=== PATIENT | male | born 2000 | race Caucasian/White ===

== ENCOUNTER 2019-03-24 09:18 | Emergency (ER) | payer OTHER ==
[~2019-03-24] VITALS: Ht 167.6 cm; Wt 61.2 kg
[~2019-03-24 09:18] MED LIST: ATARAX25 MG PO; CLARITIN REDITAB5 MG PO; PREDNICOT20 MG PO; PREDNISONE20 MG PO; SINGULAIR CHEWAB5 MG PO; VYVANSE30 MG PO; ZOFRAN ODT4 MG SL
[2019-03-24 09:26] VITALS: BP 118/58
[2019-03-24] MEDS ORDERED: IBUPROFEN600 MG PO (09:45)
[2019-03-24] MEDS ORDERED: AMOXICILLIN500 M2 PO (09:45)
== END 2019-03-24 09:51 | disposition home or self-care (01) ==
LOC: ED 09:18
DX: K02.9 Dental caries, unspecified (principal); Z79.899 Other long term (current) drug therapy

== ENCOUNTER 2019-09-21 22:18 | Emergency (ER) | payer OTHER ==
[~2019-09-21] VITALS: Wt 59.0 kg
[~2019-09-21 22:18] MED LIST changes: +AMOXICILLIN500 M2 PO; +IBUPROFEN600 MG PO
[2019-09-21 22:23] VITALS: BP 102/85
[2019-09-21] MEDS ORDERED: CLINDAMYCIN HC300 MG PO (22:56)
== END 2019-09-21 23:16 | disposition home or self-care (01) ==
LOC: ED 22:18
DX: L05.01 Pilonidal cyst with abscess (principal)

== ENCOUNTER 2020-02-18 14:11 | Emergency (ER) | payer OTHER ==
[~2020-02-18] VITALS: Ht 180.3 cm; Wt 59.0 kg
[~2020-02-18 14:11] MED LIST changes: +CLINDAMYCIN HC300 MG PO
[2020-02-18 14:37] VITALS: BP 110/69
== END 2020-02-18 16:22 | disposition home or self-care (01) ==
LOC: ED 14:11
DX: S80.01XA Contusion of right knee, initial encounter (principal); W18.39XA Other fall on same level, initial encounter; Y93.89 Activity, other specified; Y92.89 Other specified places as the place of occurrence of the external cause; Y99.8 Other external cause status

== ENCOUNTER 2020-08-30 09:58 | Emergency (ER) | payer OTHER ==
[~2020-08-30] VITALS: Wt 59.0 kg
[2020-08-30 10:12] VITALS: BP 130/71
[2020-08-30 11:09] LABS: BASO % 0.4 % (0.0-1.0); EOS # 0.3 10*3/uL (0.0-0.4); EOS % 3.9 % (1.0-4.0); HEMATOCRIT 43.1 % (42.0-52.0); LYMPH # 2.3 10*3/uL (1.3-4.4); LYMPH % 26.8 % (27.0-41.0); MEAN CELL VOLUME 92.5 fl (80.0-94.0); MEAN CORPUSCULAR HGB 30.7 pg (27.0-31.0); MEAN CORPUSCULAR HGB CONC 33.2 g/dl (33.0-37.0); MONO # 0.6 10*3/uL (0.1-1.0); NEUT # 5.2 10*3/uL (2.3-7.9); NEUT % 61.7 % (47.0-73.0); PLATELET COUNT AUTOMATED 189 10*3/uL (130-400); RED BLOOD COUNT 4.66 10*6/uL (4.50-5.90); RED CELL DISTRI WIDTH 12.4 % (0-14.5); WHITE BLOOD COUNT 8.4 10*3/uL (4.8-10.8)
[2020-08-30 11:25] LABS: ALBUMIN 3.6 gm/dl (3.1-4.5); ALKALINE PHOSPHATASE 102 U/L (45-117); BUN 15 mg/dl (7-24); CHLORIDE 107 mmol/L (98-107); CREATININE 0.63 mg/dL (0.70-1.30); POTASSIUM 4.1 mmol/L (3.5-5.1); SGOT/AST 8 IU/L (3-35); SGPT/ALT 17 U/L (12-78); SODIUM 141 mmol/L (136-145); TOTAL PROTEIN 6.6 gm/dL (6.4-8.2)
[2020-08-30] MEDS ORDERED: CEPHALEXIN500 M1 PO (13:15)
== END 2020-08-30 13:30 | disposition home or self-care (01) ==
LOC: ED 09:58
PROVIDERS: Emergency Medicine
DX: L02.211 Cutaneous abscess of abdominal wall (principal); Z91.048 Other nonmedicinal substance allergy status

== ENCOUNTER 2023-07-18 11:22 | Emergency (ER) | payer OTHER ==
[~2023-07-18] VITALS: Ht 175.2 cm; Wt 59.0 kg
[~2023-07-18 11:22] MED LIST changes: +CEPHALEXIN500 M1 PO
[2023-07-18 11:37] VITALS: BP 119/62
== END 2023-07-18 13:35 | disposition left against medical advice (07) ==
LOC: ED 11:22
DX: T50.991A Poisoning by other drugs, medicaments and biological substances, accidental (unintentional), initial encounter (principal); Z53.29 Procedure and treatment not carried out because of patient's decision for other reasons; F90.9 Attention-deficit hyperactivity disorder, unspecified type; Z88.8 Allergy status to other drugs, medicaments and biological substances; Z87.891 Personal history of nicotine dependence; Y92.009 Unspecified place in unspecified non-institutional (private) residence as the place of occurrence of the external cause

== ENCOUNTER 2023-08-07 11:42 | Emergency (ER) | payer OTHER ==
[~2023-08-07] VITALS: Ht 172.7 cm; Wt 72.6 kg
[2023-08-07 12:09] VITALS: BP 156/100
[2023-08-07] MEDS ORDERED: CEPHALEXIN500 M1 PO (13:03)
[2023-08-07] MEDS ORDERED: ATHLETIC FOOT C30 GM T (13:03)
== END 2023-08-07 13:18 | disposition home or self-care (01) ==
LOC: ED 11:42
DX: S90.821A Blister (nonthermal), right foot, initial encounter (principal); L03.115 Cellulitis of right lower limb; B35.3 Tinea pedis; X58.XXXA Exposure to other specified factors, initial encounter; Y93.89 Activity, other specified; Y92.89 Other specified places as the place of occurrence of the external cause; Y99.8 Other external cause status

== ENCOUNTER 2024-11-03 22:41 | Emergency (ER) | payer OTHER ==
[~2024-11-03] VITALS: Ht 177.8 cm; Wt 79.4 kg
[~2024-11-03 22:41] MED LIST changes: +ATHLETIC FOOT C30 GM T
[2024-11-03 22:51] VITALS: BP 139/96
[2024-11-03] MEDS ORDERED: Sodium Hypochlorite 0.5% (DAKIN'S) 480 ML SOL T ONE (23:20)
[2024-11-03] MEDS ORDERED: CEPHALEXIN 500 MG CAP PO ONE (23:25)
[2024-11-04] MEDS ORDERED: CEPHALEXIN500 M1 PO (00:25)
[2024-11-04] MEDS ORDERED: HYSEPT MC (00:25)
== END 2024-11-04 00:38 | disposition home or self-care (01) ==
LOC: ED 22:41
DX: L98.429 Non-pressure chronic ulcer of back with unspecified severity (principal); L08.9 Local infection of the skin and subcutaneous tissue, unspecified

== ENCOUNTER → 2024-11-08 | Outpatient (CLI) | payer OTHER ==
[~2024-11-08] MED LIST changes: +HYSEPT MC
[2024-11-08 16:42] LABS: BASO # 0.0 10*3/uL (0.0-0.1); BASO % 0.3 % (0.0-1.0); EOS # 0.3 10*3/uL (0.0-0.4); EOS % 2.5 % (1.0-4.0); MEAN CELL VOLUME 94.7 fl (80.0-94.0); MEAN CORPUSCULAR HGB 31.1 pg (27.0-31.0); MEAN PLATELET VOLUME 10.9 fl (9.6-12.3); MONO # 0.7 10*3/uL (0.1-1.0); MONO % 6.9 % (3.0-9.0); NEUT # 7.4 10*3/uL (2.3-7.9); NEUT % 73.6 % (47.0-73.0); NUCLEATED RED BLOOD CELL 0.0 % (0.0-0.0); NUCLEATED RED BLOOD CELL 0.0 10*3/uL (0.0-0.0); PLATELET COUNT AUTOMATED 221 10*3/uL (130-400); RED CELL DISTRI WIDTH 12.4 % (0-14.5)
[2024-11-08 17:03] LABS: BUN 11 mg/dl (9-23); LDL CHOLESTEROL 100 mg/dL (9-159); SGPT/ALT 16 U/L (5-49)
== END | disposition home or self-care (01) ==
LOC: LAB 13:04
PROVIDERS: ATTEND Nurse Practitioner Family
DX: T14.8XXA Other injury of unspecified body region, initial encounter (principal); Z13.220 Encounter for screening for lipoid disorders; Z13.29 Encounter for screening for other suspected endocrine disorder; R89.5 Abnormal microbiological findings in specimens from other organs, systems and tissues; Z13.1 Encounter for screening for diabetes mellitus; Z11.4 Encounter for screening for human immunodeficiency virus [HIV]; F19.10 Other psychoactive substance abuse, uncomplicated; X58.XXXA Exposure to other specified factors, initial encounter; Y93.89 Activity, other specified; Y92.89 Other specified places as the place of occurrence of the external cause; Y99.8 Other external cause status

== ENCOUNTER → 2024-11-09 | Outpatient (CLI) | payer OTHER | END | disposition home or self-care (01) | LOC: WOUNDCARE 03:48 | PROVIDERS: ATTEND Nurse Practitioner Family | DX: L05.01 Pilonidal cyst with abscess (principal); B95.2 Enterococcus as the cause of diseases classified elsewhere; B96.20 Unspecified Escherichia coli [E. coli] as the cause of diseases classified elsewhere; F17.210 Nicotine dependence, cigarettes, uncomplicated; Z98.890 Other specified postprocedural states; Z79.899 Other long term (current) drug therapy ==

== ENCOUNTER → 2024-11-11 | Outpatient (CLI) | payer OTHER ==
[~2024-11-11] MED LIST changes: +IOHEXOL 300 MG/ML 100 ML VIAL IV ONE; +IOHEXOL 300 MG/ML 100 ML VIAL ONE; +PREDNISONE20 M1 PO; +VIBRAMYCIN100 MG PO
== END | disposition home or self-care (01) ==
LOC: CT 01:36
PROVIDERS: ATTEND Nurse Practitioner Family
DX: T14.8XXA Other injury of unspecified body region, initial encounter (principal); R89.5 Abnormal microbiological findings in specimens from other organs, systems and tissues; X58.XXXA Exposure to other specified factors, initial encounter; Y93.89 Activity, other specified; Y92.89 Other specified places as the place of occurrence of the external cause; Y99.8 Other external cause status

== ENCOUNTER 2024-11-13 23:18 | Emergency (ER) | payer OTHER ==
[~2024-11-13] VITALS: Ht 177.8 cm; Wt 86.2 kg
[~2024-11-13 23:18] MED LIST changes: -IOHEXOL 300 MG/ML 100 ML VIAL IV ONE; -IOHEXOL 300 MG/ML 100 ML VIAL ONE; -PREDNISONE20 M1 PO; -VIBRAMYCIN100 MG PO
[2024-11-13 23:44] VITALS: BP 123/70
[2024-11-14] MEDS ORDERED: VIBRAMYCIN100 MG PO (00:01)
[2024-11-14] MEDS ORDERED: PREDNISONE20 M1 PO (00:01)
[2024-11-14] MEDS ORDERED: predniSONE 20 MG TAB PO ONE ×2 (00:59→23:55)
== END 2024-11-14 00:45 | disposition home or self-care (01) ==
LOC: ED 23:18
DX: R21 Rash and other nonspecific skin eruption (principal); T50.905A Adverse effect of unspecified drugs, medicaments and biological substances, initial encounter; Y92.89 Other specified places as the place of occurrence of the external cause